=== PATIENT | female | born 1950 | race Caucasian/White ===

== ENCOUNTER 2023-06-18 17:15 | Inpatient (IN) | payer MEDICARE, OTHER, SELFPAY ==
[2023-06-18] VITALS (12 sets, daily range): BP systolic 111–129; BP diastolic 52–83
--- NOTE | 2023-06-18 16:11 | ED.GENMED ---
History of Present Illness
General
Chief Complaint: Fainting/Passed Out
Source: patient and records
Exam Limitations: none
Time Seen by Provider: 06/18/23 15:56
Nursing documentation reviewed up to this point in time: agreed with
Travel History
Have you had any contact with someone who has COVID-19?: No
Do you have any symptoms of coronavirus? Fever > 100 degrees, chills, cough, shortness of breath, sore throat, loss of taste or smell, muscle aches, or headache?: No
History of Present Illness
History of Present Illness:
73-year-old female presents the emergency department complaining of passing out about 8 times prior to arrival. She also states she passed out en route to coming here. She had an ablation [address] Posey.
Past History
Past History
ED Past Medical History: Arrthythmia (Atrial fib), HTN, Hypercholesterolemia, NIDDM and Other (OA, Osteoporosis, PNA, Sleep apnea)
ED Past Surgical History: Cholecystectomy and Other (Umbilical hernia,)
Social History
Tobacco: Former smoker
Alcohol: Occasional
Drug: None
Personal:
Living: with family
Review of Systems
Review of Systems
Allergies reviewed?: Yes
All Other Systems: Not applicable
Constitutional: Reports no symptoms
EENT: Reports no symptoms
Respiratory: Reports no symptoms
Cardiac: Reports syncope
ABD/GI: Reports no symptoms
: Reports no symptoms
Musculoskeletal: Reports no symptoms
Skin: Reports no symptoms
Neurological: Reports no symptoms
Endocrine: Reports no symptoms
Hematologic/Lymphatic: Reports no symptoms
Psychiatric: Reports no symptoms
Phy Exam
Physical Exam
Physical Exam:
Physical Exam
General: Afebrile
Neck: supple. no meningeal signs. normal posterior pharynx
Heart: s1/s2 regular rate and rhythm, no murmur. equal radial
pulses.
HEENT: Pupils equal round reactive to light, EOMI
Lungs: no acute respiratory distress. clear bilaterally
Abdomen: normal bowel sounds. not tender. no CVAT
Neuro: alert and oriented. no focal neurological deficits cranial nerves II through XII intact
Skin: no rash
Psychiatric: well kept. interactive and cooperative
Extremities: no edema. no calf tenderness. negative homans. good distal pulses
Course
Orders/Labs/Results
Orders:
Orders
06/18/23 15:21
Electrocardiogram (*1) Urgent
Reason for Study: Chest Pain
EKG- Treatment ONCE
06/18/23 16:02
EKG [Electrocardiogram (*1)] Urgent
Reason for Study: Abnormal EKG
06/18/23 16:03
EKG- Treatment ONCE
06/18/23 16:05
Complete Blood Count/With Diff Urgent
Comprehensive Metabolic Panel Urgent
Troponin I Urgent
06/18/23 16:10
PT/INR [Prothrombin Time] Urgent
06/18/23 16:50
Admit/Transfer Patient As Directed
Co-Sign Provider:
Level of Care: Inpatient admission
Assign to:: CVICU
Physician / Group: Dr. Posey
Diagnosis: pauses, syncope
Reason for Hospitalization: pauses, syncope
Expected length of stay greater than two midnights?: Yes
ELOS- Estimated Length of Stay in days: 3
I certify the patient meets the requirements for IP care: Yes
06/18/23 19:24
Acetaminophen [Tylenol] 500 mg PO Q4HPRN PRN
Calcium Carbonate [Oscal Wyatt 500] 500 mg PO QPM
Dextrose 50%-Water [Dextrose 50% Syringe] 12.5 grams IV [id number] PRN
Docusate Sodium [Colace] 100 mg PO DAILYPRN PRN
Glucagon [GlucaGen] 1 mg IM PRN PRN
06/18/23 19:24
Activity As Directed
Activity Level: Bedrest
Bedside Glucose Monitoring As Directed
Frequency: AC&HS
Comment: Change to q6h if pt on TPN, tube feeding or not eating
INT (Intravenous Needle Therapy) As Directed
Comment: #20 IV gauge catheter
Notify MD As Directed
Notify physician if: no consent on chart
OR/Surgery Prep As Directed
Type of Prep: cleanse patient with Chlorhexidine gluconate 2%
Surgical Procedure As Directed
Surgical Procedure: pacemaker
Vital Signs As Directed
Frequency: Per unit guidelines
Cpap [RESP] Routine
Patient to use own unit?: Yes
Instructions: QHS. If patient without her own CPAP, please use her typical settings.
06/18/23 20:00
Apixaban [Eliquis] 5 mg PO BID
06/18/23 22:00
Atorvastatin [Lipitor] 20 mg PO HS
Docusate Sodium [Colace] 100 mg PO HS
06/19/23 Breakfast
NPO
Allow oral meds: Yes
Allow clear liquids: No
NPO for procedure after (time): midnight
06/19/23 07:30
Insulin Aspart Corrective Low [Novolog Flexpen-Low Resistance] See Protocol SC AC
06/19/23 08:00
Aztreonam [Azactam] 2,000 mg IV PRE PROCEDURE ONE
Lisinopril [Zestril] 10 mg PO DAILY
Vancomycin [Vancocin] 1,000 mg 0.9% Sod Chloride 500 ml Irr [Nss Irrigation Bottle] 500 ml IRRIG CATH
Vancomycin [Vancocin] 1,500 mg 0.9% Sodium Chloride [Nss] 20 ml 0.9% Sodium Chloride 250 ml [Nss] 250 ml IV PRE PROCEDURE
Vancomycin Surgical Prophylaxis Indication: Allergy: PCN or B-Lactam
06/19/23 16:00
Pantoprazole [Protonix] 40 mg PO DAILY@1600
Abnormal Lab Results
06/18/23 06/18/23
16:05 16:10
RDW 15.6 H %
(11.5-14.5)
MPV 10.9 H fL
(7.4-10.4)
Absolute Lymphs (auto) 0.8 L 10^3/uL
(1.2-3.4)
Neutrophils % 78.5 H %
(42.2-75.2)
Lymphocytes % 16.3 L %
(20.5-51.1)
PT 17.1 H Sec
(11.4-14.6)
Potassium 3.4 L mmol/L
(3.5-5.1)
Chloride 108 H mmol/L
(98-107)
Creatinine 0.5 L mg/dL
(0.6-1.0)
Glucose 125 H mg/dl
(70-99)
Troponin I 0.231 H* ng/ml
06/18/23 16:05
06/18/23 16:05
Vital Signs
Initial and Last Documented VS:
Initial Vital Signs
Temp Pulse Resp BP Pulse Ox
98.2 F 82 18 129/75 100
06/18/23 15:18 06/18/23 15:18 06/18/23 15:18 06/18/23 15:18 06/18/23 15:18
Last Documented Vital Signs
Temp Pulse Resp BP Pulse Ox
98.3 F 76 20 117/52 97
06/18/23 22:45 06/18/23 23:00 06/18/23 23:00 06/18/23 23:00 06/18/23 23:10
MDM/Problems Addressed
Differential Diagnosis Includes:
Asystole, tachy bradycardia, sick sinus syndrome
MDM/Problems Addressed:
73-year-old female with sinus pauses, atrial fibrillation rapid, and episodic asystole. Patient had recent cardiac ablation. Discussed with Dr. Perales, who will see patient in ED. Plan to admit patient possible pacemaker.
Chronic conditions affecting care: Arrhythmia (Atrial fibrillation)
Acute Exacerbation and/or Progression of Chronic Illness: Arrhythmia (Atrial fibrillation)
*Pulse Oximetry
Patient hypoxic: no
*EKG
Interpreted by ED Provider?: Yes
EKG Intrepretation Date: 06/18/23
EKG Intrepretation Time: 15:27
Interpretation: abnormal
Comparison EKG: changes noted
Heart Rate: 122
Rate: tachycardiac
Rhythm: a-fib
[place]: normal axis
Interval: normal interval
QRS Pattern: normal QRS
Ischemia: non-specific ST changes
*Uniform Maker Interpretation
Rate: other (normal sinus, with sinus pause)
Interpretation: abnormal
Heart Rate: 78
Rhythm: sinus (intermittent sinus pause)
*Critical Care Note
Total Time (30-74mins, 75-104mins- exclusive of procedures): 30
comment:
Critical care statement: A total of 30 minutes of critical care time was provided for this patient. This includes management of unstable vital signs, evaluation of the patient at bedside, reviewing the patient's pertinent medical records, discussion
with consultants, review of old EKGs and review of pertinent medical records. This time with separate from time utilized to perform the aforementioned documented procedures insert [facility] critical care
Data Reviewed
Review of Other/Old Records Reveals: Records and Operative Reports (06/16/[address] Posey)
Patient Management
Social determinants of health affecting care: Living situation
Discussion with other providers: Camera Tuning Engineer (cardiology Dr. Perales)
Escalation/DeEscalation of care consider admission/obs:
admit indicated
ED Attending Note
-
Portions of this chart may have been created with voice recognition software.� Occasional wrong word or��sound alike� substitutions may have occurred due to the inherent limitations of voice recognition software.
Discharge Plan
Departure
Patient Disposition: TIRE CARE MANAGER
Date of Disposition: 06/18/23
Time of Disposition: 16:18
Admit to: IVU
Presentation/result/management discussed w/ accepting MD/DO: Dr. Perales, cardiology
Patient with high blood pressure during this ER visit?: Yes
Condition: Good
Discharge Problem:
Sinus pause, Syncope
Interventions
Interventions:
*Risk Screen - Suicide Last Done: 06/18/23 15:18
*General Assessment Last Done: 06/18/23 16:28
*Neglect/Abuse Screening Last Done: 06/18/23 15:18
ED- Fall Risk Assessment Last Done: 06/18/23 18:19
*ED COVID-19 Vaccine History Last Done: 06/18/23 15:18
*Nursing Disposition Last Done: 06/18/23 18:19
ED- Cardiac Assessment Last Done: 06/18/23 16:03
ED- Neurological Assessment Last Done: 06/18/23 16:03
Discharge Date and Time
Discharge Date/Time: 06/18/23 18:20
[2023-06-18 16:14] LABS: % Basophils 0.2 % (0-2); % Eosinophils 0.2 % (0-6); % Immature Granulocytes 0.4 % (0-0.5); % Lymphocytes 16.3 % (20.5-51.1); % Monocytes 4.4 % (1.7-9.3); % Neutrophils 78.5 % (42.2-75.2); Absolute Lymphocytes 0.8 10^3/uL (1.2-3.4); Absolute Monocytes 0.2 10^3/uL (0.1-0.6); Absolute Neutrophils 3.8 10^3/uL (1.4-6.5); Hematocrit 38.2 % (37.0-47.0); Hemoglobin 12.7 g/dL (12.0-16.0); Mean Corp Hgb Conc. 33.2 g/dL (33.0-37.0); Mean Corpuscular Hgb 28.6 pg (27.0-31.0); Mean Platelet Volume 10.9 fL (7.4-10.4); Nucleated Red Blood Cells % 0 %; Platelet Count 143 10^3/uL (130-400); Red Blood Cell Count 4.44 10^6/uL (4.20-5.40); Red Cell Dist. Width 15.6 % (11.5-14.5); White Blood Cell Count 4.8 10^3/uL (4.8-10.8)
[2023-06-18 16:27] LABS: INR 1.39; PT 17.1 Sec (11.4-14.6)
[2023-06-18 16:31] LABS: ALT (SGPT) 17 U/L (0-35); AST (SGOT) 20 U/L (14-36); Albumin 3.7 g/dl (3.5-5.0); Alkaline Phosphatase 65 U/L (38-126); Blood Urea Nitrogen 14 mg/dl (7-17); Calcium 8.5 mg/dl (8.4-10.2); Carbon Dioxide 26 mmol/L (22-30); Chloride 108 mmol/L (98-107); Glucose 125 mg/dl (70-99); Potassium 3.4 mmol/L (3.5-5.1); Sodium 136 mmol/L (135-145); Total Bilirubin 1.2 mg/dl (0.2-1.3); Total Protein 6.4 g/dl (6.3-8.2); eGFR > 60.00
[2023-06-18 16:37] LABS: Troponin I 0.231 ng/ml
--- NOTE | 2023-06-18 17:02 | HPS.HSE ---
Addendum entered and electronically signed by Cleveland Perales MD 06/18/23 17:28:
Patient seen and examined in collaboration with SALES FORCE DEVELOPER; agree with below.
-73-year-old female with medical history as outlined below; underwent atrial fibrillation ablation on 06/16/2023.
-Patient now admitted with symptomatic bradycardia (recurrent syncope).
-The patient continues to have several pauses up to 6 seconds in the ER; patient states that she has had over 20 episodes throughout the course of the day since noon.
-Case discussed with Interventional Cardiology and EP Cardiology; patient will undergo temporary pacemaker wire insertion now.
-Patient will undergo permanent pacemaker implantation tomorrow; NPO after midnight.
-Continue Eliquis as the patient just underwent atrial fibrillation relation 2 days ago.
-front desk monitor.
Original Note:
Family Physician
-
Family Physician: Paul Lo
Chief Complaint
-
'blacking out'
History of Present Illness
73 y/o female with hypertension, factor V Leiden, DM, TATYANA on CPAP and AFIB who is here for evaluation of multiple episodes of 'blacking out' for 5-6 seconds at a time. These are seen to correlate with pauses in the ER. She just had an AFIB ablation
with Dr. Posey on 06/16/23.
Medical History
Past Medical History
Past Medical History: Reports Arrhythmia, HTN, NIDDM and Other (as above)
Past Surgical History: Reports Cholecystectomy and Orthopedic
Social History
Tobacco: Former Smoker
Personal:
Family History
Family History: Not pertinent
Allergies / Home Medications
Allergies reflects when Allergies were last updated in [facility].
Home Medications with original date entered in [facility]
Allergy/Medication List:
Allergies: As listed by pharmacy
Medications: As listed by pharmacy
Review of Systems
-
History Source: Patient
A 12 point ROS was completed and negative except as noted: Yes
Cardiac: Reports Other ('blacking out')
Physical Exam
Vital Signs
Vital Signs
Temp Pulse Resp BP Pulse Ox
98.2 F 82 18 129/75 100
06/18/23 15:18 06/18/23 15:18 06/18/23 15:18 06/18/23 15:18 06/18/23 15:18
Physical Exam
General: Well Developed, Well Nourished and No Apparent Distress
HEENT: NormoCephalic and Anicteric
Respiratory: Clear and Non Labored Respirations
Cardiac: Regular Rhythm
Breast: Deferred by me
GI: Soft, Non Distended and Normal Bowel Sounds
Skin: Warm and Dry
Neuro: AO x 3
Psych: Calm
Laboratory Results
-
06/18/23 16:05
06/18/23 16:05
Laboratory Results
PT 17.1 Sec (11.4-14.6) H 06/18/23 16:10
INR 1.39 06/18/23 16:10
Total Bilirubin 1.2 mg/dl (0.2-1.3) 06/18/23 16:05
AST 20 U/L (14-36) 06/18/23 16:05
ALT 17 U/L (0-35) 06/18/23 16:05
Alkaline Phosphatase 65 U/L (38-126) 06/18/23 16:05
Troponin I 0.231 ng/ml H* 06/18/23 16:05
Data Reviewed
-
Medical Tests (Nuc Med, Echo, EKG etc): Report Reviewed by me (echo 04/17/23: Normal left ventricular size and systolic function. LV ejection fraction is 55-60% by Connelly's method of discs. Mild concentric left ventricular hypertrophy. No
significant valvular disease. Trivial to small pericardial effusion without hemodynamic compromise.) and Other (EKG SR)
Lab Data: Labs Reviewed by me
Impression/Plan
-
IMPRESSION/PLAN:
Pauses, syncope:
-this diagnosis is threat to life
-discussed with EP, interventional cardiology- temp wire today, permanent pacemaker tomorrow. Also discussed with laboratory animal care veterinarian charge.
-multiple 'black out' spells today per patient.
-hold metoprolol
PAF:
-in SR
-recent ablation 2 days ago as noted
-continue Eliquis for OAC
-hold metoprolol as above
-continue PPI s/p ablation
TATYANA:
-continue CPAP
DM 2:
-hold oral diabetic meds since NPO
-will order SSI for now
HTN:
-continue ACEI, hold BB, follow
Abnormal troponin:
-likely acute non-ischemic myocardial injury in setting of recent cardiac procedure
--- NOTE | 2023-06-18 19:03 | ITS.CL.PN ---
Dice Spotter - Procedure Note
Procedure
Procedure Note:
Temporary Pacemaker Insertion
Date: 06/18/2023
Referring: Cleveland Perales M.D.
Indication: Recent atrial fibrillation ablation, now with tachybradycardia syndrome and associated syncope.
Access:
7 [place] right internal jugular vein using a micropuncture kit under ultrasound guidance via a modified Seldinger technique.
Pacemaker Information:
Position: Right ventricular apex.
Current (mA): 20
Rate (bpm): 60 (backup)
Procedure:
The patient's right neck and inguinal areas were prepped and draped and standard sterile fashion. The right neck was anesthetized with 1% lidocaine. The internal jugular vein was punctured with a micropuncture needle under ultrasound guidance
using a modified Seldinger technique. Fluoroscopy confirmed satisfactory wire position. The needle was withdrawn and the micropuncture sheath was inserted. The inner dilator and micropuncture wire were withdrawn and a 0.035 J-wire was advanced.
The site was serially dilated and an 7 [place] Arrow sheath was inserted then sutured in place. A temporary pacemaker wire was covered with a sterile cover, then inserted through the 7 Kenyan sheath. The tip of the pacemaker was advanced into the
apex of the right ventricle. The pacemaker was turned on at 100 bpm at 20 mA. The current was serially decreased showing good capture at 1 mA. The current was increased to 20 mA and the rate decreased to VVI 60 bpm. The sterile cover was secured
and the sheath was covered with two opposing tegaderm dressings. A third tegaderm secured the body of the temporary pacemaker just below the right clavicle. The patient was transferred to CVICU in stable condition.
Radiation (mGy): 10.55
Dose Area Product (Gy*cm2): 1.6234
Fluoroscopy Time (minutes): 0.6
Conclusions:
1. Successful placement of a temporoary pacemaker via right internal jugular approach without acute complications.
2. Temporary pacemaker set to VVI backup at 60 bpm, 20 mA.
Recommendations:
1. Minimal manipulation of the right internal jugular wire to avoid potential dislodgement.
2. Tentative plan for permanent pacemaker placement tomorrow.
Copy to: Donis Posey M.D., Cleveland Perales M.D., Paul Lo M.D., Cleveland De La O M.D.
--- NOTE | 2023-06-18 19:30 | PTCARENOTE ---
Assumed care of patient from Pharmacist Aide RN s/p temp pacer wire placed via RIJ cordis. Patient oriented to room/unit, positioned in bed for comfort. SR on monitor, temp pacer set to VVI 60/20, VSS, lungs clear, SPO2 97% on RA. Abd soft, non tender,
+BS. palpable distal pulses, HENDRICKS equally without issue. Full assessment completed as documented, plan of care discussed with patient verbalizing understanding.
[2023-06-18] MEDS: OSCAL CAL 500 500 MG PO (20:57)
[2023-06-18] MEDS: PROTONIX 40 MG PO (20:57)
[2023-06-18] MEDS: TYLENOL 650 MG PO (20:58)
[2023-06-18] MEDS: NSS 500 IV (20:58)
[2023-06-18 21:39] LABS: Glucose - Point of Care 68 mg/dl (70-99)
[2023-06-18 21:56] LABS: Glucose - Point of Care 72 mg/dl (70-99)
--- NOTE | 2023-06-18 22:00 | GLUCOSE ---
SITUATION:
Patient unable to eat all day due to temp pacer being placed, initial accu check 68, patient asymptomatic, 4oz juice given per protocol, 15 min recheck 72.
BACKGROUND:
ASSESSMENT:
RECOMMENDATION:
[2023-06-18] MEDS: LIPITOR 20 MG PO (22:09)
[2023-06-18] MEDS: KCL 20 MEQ PO (22:09)
[2023-06-18] MEDS: COLACE PO ×2 (22:32→22:33)
--- NOTE | 2023-06-18 23:00 | PTCARENOTE ---
report received from previous RN, walking rounds done. pt flat in bed, sleeping. NSR on monitor, HR 70's. pt wearing CPAP mask. RIJ cordis with transvenous pacer intact, set to back up VVI 60, mA 20, KVO infusing. IV fluid noted within protective
sheath of pacer wire, CT PA Tsilina aware and no new orders. pure wick catheter in place. see worklist for full assessment, VS, and interventions.
--- NOTE | 2023-06-18 23:14 | PTCARENOTE ---
No acute changes in assessment, patient resting comfortably, VSS, remains SR on monitor, Temp pacer via right IJ cordis remains intact.
[2023-06-19] VITALS (23 sets, daily range): BP systolic 105–160; BP diastolic 43–91; PULSE 63–80; BMI 38.9
[2023-06-19 00:17] LABS: Glucose - Point of Care 86 mg/dl (70-99)
[2023-06-19 02:43] LABS: Glucose - Point of Care 81 mg/dl (70-99)
--- NOTE | 2023-06-19 03:00 | PTCARENOTE ---
pt VSS, no changes in assessment. AAOx4, pt denies any pain. SR w occasional V.pacing on monitor, HR 70's. transvenous pacer remains intact, settings unchanged. POX 95-97% on room air. AM labs drawn and sent.
[2023-06-19 03:14] LABS: Blood Urea Nitrogen 10 mg/dl (7-17); Calcium 8.3 mg/dl (8.4-10.2); Carbon Dioxide 24 mmol/L (22-30); Chloride 108 mmol/L (98-107); Estimated Creatinine Clearance 97 ml/min; Glucose 88 mg/dl (70-99); Potassium 3.2 mmol/L (3.5-5.1); Sodium 136 mmol/L (135-145); eGFR > 60.00
[2023-06-19 04:49] LABS: Hemoglobin 11.6 g/dL (12.0-16.0); Mean Corp Hgb Conc. 33.1 g/dL (33.0-37.0); Mean Corpuscular Hgb 28.4 pg (27.0-31.0); Mean Corpuscular Volume 85.6 fL (81.0-99.0); Mean Platelet Volume 10.7 fL (7.4-10.4); Platelet Count 114 10^3/uL (130-400); Red Blood Cell Count 4.09 10^6/uL (4.20-5.40); Red Cell Dist. Width 15.8 % (11.5-14.5); White Blood Cell Count 3.2 10^3/uL (4.8-10.8)
[2023-06-19] MEDS: KCL 40 MEQ PO (06:40)
--- NOTE | 2023-06-19 08:06 | PTCARENOTE ---
Gave small report to flue dust laborer RN, since patient is the next case. He was sitting next to Dr. Posey - said okay to administer Lisinopril and Eliquis this AM. JOURNAL CLERK notified since Eliquis order is on hold. Patient has some concerns about getting a
PPM, asked if Kalpesh could come and speak with her prior to the procedure.
--- NOTE | 2023-06-19 08:16 | PTCARENOTE ---
Patient received from nightshift nurse. Patient is alert and oriented x4, pleasant. Denies pain/discomfort - states that she is stiff from being in bed all night. NSR with occasional monomorphic PVCs. Audible heart tones. HR 70s-80s. BP 153/76.
Palpable pulses. Trace generalized edema. RIJ sheath maintained with KVO and temporary wire. Pacer box settings: VVI, HR 60, mA 20. Patient has not needed to be paced so far in this AM. RA. Oxygen saturation 96%. Upon auscultation, lung sounds clear
throughout. Abdomen round, obese. Hypoactive BS. NPO for procedure. Purewick removed. Voided in bedpan. Turns/repositions self. No wound management. Plan is to go to [facility] and received a PPM. Will continue to monitor.
[2023-06-19] MEDS: ZESTRIL 10 MG PO (08:28)
[2023-06-19] MEDS: ELIQUIS 5 MG PO ×2 (08:28→20:35)
[2023-06-19 09:12] LABS: Glucose - Point of Care 89 mg/dl (70-99)
[2023-06-19] MEDS: VANCOCIN 300 ML IV (09:35)
[2023-06-19] MEDS: VANCOCIN 300 MG IV (09:35)
--- NOTE | 2023-06-19 09:49 | PTCARENOTE ---
Gave full report to can labeler RN. Started vanco abx when they called for pre-op administration. Patient washed up with CHG wipes and new gown provided. Sheets changed. Azactam and sterile water taken out of CVICU Pyxis to travel with patient to cath
lab.
--- NOTE | 2023-06-19 09:58 | PTCARENOTE ---
Patient is very anxious about receiving PPM and whether he actually needs it. Dr. Posey came to speak with patient about her concerns. Consent signed. Patient picked up by dental laboratory manager RN and tech. Bedside updates given. Abx sent with patient.
--- NOTE | 2023-06-19 10:17 | W.PN.CD ---
Today's Communication / Plan
-
-Pacemaker implantation today
Impression / Plan
-
73 y/o female with hypertension, factor V Leiden, DM, TATYANA on CPAP and AFIB�s/p AF ablation 06/16/23, with recurrent presyncope/syncope over the last few months presented with sinus pause status post temporary pacemaker wire via right IJ and is now in
sinus rhythm.
Sick Sinus Syndrome
-History of recurrent syncope for the past few months
-Likely associated with conversion pauses
-On metoprolol at baseline sinus bradycardia yet long sinus pauses are likely not related to metoprolol
-S/p temporary wire
-Will plan for dual-chamber pacemaker today�likely need atrial pacing.
Paroxysmal atrial fibrillation
-S/p A-fib ablation on 06/16/2023
-Simple short pulm vein isolation -no complication
-No significant scar noted in the left atrium
Hypertension
-Well-controlled on hydrochlorothiazide, lisinopril, metoprolol, Jardiance
Chronic anticoagulation
-Factor V Leiden, paroxysmal atrial fibrillation
-[id number] score is 4, (age, gender, hypertension, diabetes)
-On Eliquis 5 mg twice a day
-Given recent ablation, we will not hold Eliquis and give Eliquis and pacemaker with full anticoagulation in place.
Physical Exam
Vital Signs/Labs
Vital Signs
Temp Pulse Resp BP Pulse Ox
98.0 F 78 17 160/73 98
06/19/23 04:00 06/19/23 10:00 06/19/23 10:00 06/19/23 09:00 06/19/23 10:00
06/18/23 06/19/23 06/20/23
06:59 06:59 06:59
Actual Weight 99.7 kg
06/19/23 04:34
06/19/23 02:41
PT 17.1 Sec (11.4-14.6) H 06/18/23 16:10
INR 1.39 06/18/23 16:10
LAB Results
06/18/23
16:05
Troponin I 0.231 H*
Physical Exam
Constitutional: No acute distress and Comfortable
EENT: Anicteric and Moist mucous membranes
Cardiovascular: Rhythm & rate is regular, Pedal edema is absent, JVD pressure is normal and Systolic murmur absent
Respiratory: Respiratory effort normal, Lungs clear to auscul. and Wheeze Absent
GI: Soft, Non tender and Normal bowel sounds
Neuro/Psych: Alert, Oriented and AO x 3
Other: Cardiac Device Site
Data Reviewed
-
Date of Service: June 19, 2023
Medical Decision Making: Reviewed Test Results, Independent Historian Assessment, Test Interpretation and Review of Case with other Provider
EKG: Tracing Personally Visualized and interpreted
Echo: Report Reviewed by me
Medical Tests (PFT, Pathology etc): Image Personally Visualized and interpreted
Labs: Labs Reviewed by me
Old Records: Reviewed
Critical Care Time (in minutes): 35
--- NOTE | 2023-06-19 11:37 | ITS.CL.PACE ---
Supervisor Prop Making - Pacemaker Implant
Pacemaker Implant
Procedure Report:
Dual Chamber Pacemaker Placement:
Ms. 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
Indications: Tachy Adeel syndrome
Date of the Procedure: 06/19/23
Pre-Operative Diagnosis: Tachy Adeel syndrome with symptomatic bradycardia
Post-Operative Diagnosis: Tachy Adeel syndrome with symptomatic bradycardia
Procedure Performed: DUAL CHAMBER PACEMAKER IMPLANTATION
Performing Physician:
Donis Posey MD
Anesthesia:
See anesthesia records
Pre-operative antibiotics:
Aztreonam/Vancomycin
Detailed Description of the Procedure:
The patient was identified using hospital identification and informed consent obtained for the procedure. The risks were explained including, but not limited to: Bleeding, infection, arrhythmia, stroke, vascular/cardiac/lung puncture, surgery,
pacemaker dependency/device malfunction. All questions were answered.
The patient was brought to the electrophysiology laboratory in stable condition in fasting state. Continuous electrocardiographic and hemodynamic monitoring was initiated. The initial rhythm was atrial fibrillation with rapid ventricular response. �
The procedure site was meticulously prepared with surgical scrub and allowed to dry with no pooling. Sterile draping was applied to cover the procedure site. The image intensifier was draped with sterile bag and positioned over the patient.
A surgical pause and time out was performed immediately prior to the procedure with review of her medical history, recent labs, allergies and medications with site of procedure identified and consent noted in the chart. Antibiotics pre operatively
given. All team members concurred.
The left infraclavicular region was prepped and draped in the usual sterile fashion. Local anesthesia was administered subcutaneously using 1% lidocaine / Bupivacaine.
The left upper extremity venogram was done and the axillary route identified. There was patent subclavian vein.
Following infiltration with local anesthetic, the axillary vein was accessed using the fluoroscopic guidance using the micro-puncture apparatus. The vascular sheaths were introduced for lead access. The leads were advanced into the right ventricle
and the right atrium.
The right ventricular lead was secured in position with an active fixation technique at the apical septal location.
The atrial lead was positioned at the right atrial appendage with active fixation.
There was excellent sensing, pacing, and impedance from the leads, with no diaphragmatic stimulation at 10 V output.�Bovie cautery, antibiotics, and fluoroscopy were used.
The sheaths were withdrawn, and the thresholds remained acceptable. The leads were secured in position at the venous entry site with 0-silk. A pocket was fashioned contiguous to the incision. The electrode terminals were connected to the pulse
generator, which was placed into the pocket.
The wound was irrigated thoroughly with antibiotic solution and closed in 3 layers using 2-0 Vloc then 4-0 V loc sutures to the dermis. STERIS trips were applied externally followed by Aquacel bandage. �
Procedure End:
The procedure was tolerated well.
Estimated Blood loss:
5 cc
Specimens Removed:
No cultures and no specimens were obtained. No intraoperative pathology was identified.
Urine output:
None
Packs / Drains/ Tubes:
None
Instrument / Sponge Count Correct:
Yes
Complications of the Procedure:
None
Condition of Patient at Time of Transfer:
Hemodynamically stable with no neurological or vascular compromise.
Device information:�
Generator: [employer]/St Eric; Model: Assurity- [id number]; Serial # [id number]�
Atrial Lead: [employer]/St Eric; Model: Tendril STS- 2088TC/46; Serial # [id number]�
Measured data in the right atrium was sensing of 3.8mV, impedance of 460 ohms and threshold of 1.2 V at 0.4ms�. �
RV Lead: [employer]/St Eric; Model: Tendril STS-2088TC/52; Serial # [id number]
Measured data in the RV lead was sensing of 5.8 mV, impedance of 590 ohms and threshold of 0.75 V at 0.4ms�
Adeel parameter settings were DDDR 80 bpm. �
����������� Mode Switch: On
����������� Paced AV interval: 180ms
����������� Sensed AV interval: 150 ms.
����������� Rate Adaptive A-V Interval: Off
Summary:
Successful implantation of MRI compatible dual St Eric chamber pacemaker
Results/Recommendations:
-Please follow up CXR�
-Please provide patient with adequate pain control�
Instructions to be given to patient:�
- Please follow up with [facility] at [address] [place] [address] ([phone]) to get your wound checked within 14 days of your discharge.
- Do not wet incision site until after it is evaluated at cardiology clinic. No soaking or bath until then. Showers or Sponge baths are OK.�Dab dry the area after a shower.
- Do not lift left elbow above shoulder, particularly with sudden jerking movements, for 1 month�
- Do not lift anything weighing more than 10 pounds with the left arm for 1 month�
- If you notice any fevers, shortness of breath, lightheadedness, chest pain, or worsening swelling in the wound site, please contact the arrhythmia clinic, contact your risk consultant, or present to the hospital for evaluation.�
Donis Posey MD
Electrophysiology
[2023-06-19] MEDS: AZACTAM 2000 MG IV (12:14)
[2023-06-19] MEDS: STERILE WATER FOR INJECTION 10 ML IV (12:15)
--- NOTE | 2023-06-19 12:18 | PTCARENOTE ---
Patient received from cath lab nurse. Checks performed with cath lab nurse RN. Patient is alert and oriented x1. She is c/o 8/10 L shoulder pain, where her new PPM is located. [place] Texted CP for pain medications. NSR/A-paced about 75%. HR 80s. BP 148/52. New
Dual chamber LCW PPM settings: DDDR HR 80-130. RA. Oxygen saturation 95%. Plan to obtain CXR so then patient can get OOB and each lunch. Will continue to monitor.
[2023-06-19 12:29] LABS: Glucose - Point of Care 100 mg/dl (70-99)
[2023-06-19] MEDS: LIDOCAINE 4% PATCH 1 PATCH TOPICAL (13:05)
[2023-06-19] MEDS: TYLENOL 650 MG PO (13:06)
--- NOTE | 2023-06-19 15:02 | PTCARENOTE ---
Patient went into rapid Afib with HR up to 181bpm at 1451. Patient states that she feels palpitations and fluttering. Denies dizziness, little lightheadedness. BP 114/43. Patient placed back into the bed. MARIELLA Malin notified and she stated she
will reach out to Dr. Posey. Cardiology aware and awaiting orders.
[2023-06-19] MEDS: PROTONIX 40 MG PO (15:34)
[2023-06-19] MEDS: TOPROL XL 100 MG PO ×2 (15:45→20:35)
--- NOTE | 2023-06-19 15:58 | W.PN.UPDATE ---
Update Note
Progress Note Update
Patient went into AF with RVR this afternoon. Metoprolol was given. If comes out of AF then continue Metoprolol 100 mg qhs and 50 mg QAM.
If remains in AF then plan for cardioversion in AM. Propafenone 600 mg X 1 for pharmacologic cardioversion. She has Rythmol at home for pill in the pocket to use.
--- NOTE | 2023-06-19 16:20 | CM ---
CM following for DC planning needs.
Met w/ patient at bedside to complete initial assessment.
Pt. informs that she resides in a private, 2 story home w/ spouse. Spouse has Parkinsons/Dementia and patient reports that she cares for him. Pt. has 2 sons that live closeby that can assist as needed.
Pt. is functionally indep. at baseline w/ ADLs, mobility without the use of any assisted device. Pt. does have a stair glide, which she uses due to 'bad knees'. Pt. has RX plan and uses [facility] [address] in [place].
Anticipated DC plan is for home without needs.
Will cont. to follow for any needs that may arise.
[2023-06-19] MEDS: LOPRESSOR 5 MG IV (17:01)
[2023-06-19] MEDS: ANCEF 5 IV (18:56)
[2023-06-19] MEDS: OSCAL CAL 500 500 MG PO (18:56)
--- NOTE | 2023-06-19 20:15 | PTCARENOTE ---
assumed care of pt from previous RN. pt A&Ox4, resting in bed. no c/o pain at this time. a fib on tele-monitor, HR 115s-130s. PPM DDDR w/ parameters 80-130. POX 96% on RA. abd s/n, round, +BS. pt voiding in bathroom. PIV intact. L arm immobilizer in
place. see worklist for complete nursing assessment, interventions, VS, and I&Os.
[2023-06-19] MEDS: COLACE 100 MG PO (20:34)
[2023-06-19] MEDS: AMARYL 4 MG PO (20:34)
[2023-06-19] MEDS: LIPITOR 20 MG PO (20:35)
[2023-06-19 21:09] LABS: Glucose - Point of Care 182 mg/dl (70-99)
--- NOTE | 2023-06-20 | PTCARENOTE ---
assessment remains unchanged. 100% a-paced on tele-monitor. POX 96% w/ CPAP. no c/o pain at this time.
[2023-06-20 00:24] VITALS: BP 116/56
[2023-06-20] MEDS: ANCEF 5 IV (02:29)
[2023-06-20] MEDS: XANAX 0.25 MG PO (02:29)
[2023-06-20 03:56] VITALS: PULSE 80
--- NOTE | 2023-06-20 04:00 | PTCARENOTE ---
assessment remains unchanged. remains 100% a-paced. unable to obtain AM labs. phlebotomy team called.
[2023-06-20] MEDS: NSS IV (04:04)
[2023-06-20 04:28] VITALS: BP 123/60
[2023-06-20 06:36] LABS: Hematocrit 37.1 % (37.0-47.0); Hemoglobin 12.2 g/dL (12.0-16.0); Mean Corp Hgb Conc. 32.9 g/dL (33.0-37.0); Mean Corpuscular Hgb 28.5 pg (27.0-31.0); Mean Corpuscular Volume 86.7 fL (81.0-99.0); Mean Platelet Volume 10.5 fL (7.4-10.4); Platelet Count 126 10^3/uL (130-400); Red Blood Cell Count 4.28 10^6/uL (4.20-5.40); Red Cell Dist. Width 15.5 % (11.5-14.5); White Blood Cell Count 4.3 10^3/uL (4.8-10.8)
[2023-06-20 07:08] LABS: Blood Urea Nitrogen 18 mg/dl (7-17); Calcium 8.6 mg/dl (8.4-10.2); Carbon Dioxide 22 mmol/L (22-30); Chloride 104 mmol/L (98-107); Estimated Creatinine Clearance 97 ml/min; Glucose 95 mg/dl (70-99); Magnesium 2.1 mg/dl (1.6-2.3); Potassium 3.7 mmol/L (3.5-5.1); Sodium 137 mmol/L (135-145); eGFR > 60.00
--- NOTE | 2023-06-20 08:13 | PN.CDI ---
CDI
- -
CDI:
Physician Documentation Request
Admit Date: 06/18/23 17:15
Dear Doctor Kalpesh,
Patient admitted with symptomatic bradycardia.
06/18 Potassium level: 3.4
06/18 Potassium chloride 20 meq PO administered
06/19 Potassium level: 3.2
06/19 Potassium chloride 40 meq administered
Based on the above, could you clarify in the progress notes, the appropriate diagnosis, if significant, that supports the above abnormalities and additional evaluation, monitoring and/or treatment rendered:
Hypokalemia
Abnormal lab value insignificant
Other
Use of terms such as suspected, likely, concern for, or probable (associated with a specific diagnosis that is being evaluated, monitored, or treated as if it exists) are acceptable and can be coded in the inpatient setting, when documented at the
time of discharge.
Thank you,
Marlene Yadav RN, BSN
CDI Specialist
Available via [place] text
Please use your independent medical judgment in providing your response.
--- NOTE | 2023-06-20 08:26 | W.PN.CD ---
Addendum entered and electronically signed by MARIELLA Montenegro 06/24/23 07:52:
On admission pt had hypokalemia and was repleted by lorenza K on d/c 3.7.
Original Note:
Today's Communication / Plan
-
doing well s/p PPM
cont Toprol XL 50mg AM, 100mg PM; and eliquis 5mg bid
Impression / Plan
-
73 y/o female with hypertension, factor V Leiden, DM, TATYANA on CPAP and AFIB�s/p AF ablation 06/16/23, with recurrent presyncope/syncope over the last few months presented with sinus pause status post temporary pacemaker wire via right IJ and is now in
sinus rhythm.
Sick Sinus Syndrome
-History of recurrent syncope for the past few months
-Likely associated with conversion pauses
-s/p St Eric dual chamber PPM 06/19
Paroxysmal atrial fibrillation
-S/p A-fib ablation on 06/16/2023
-Simple short pulm vein isolation -no complication
-No significant scar noted in the left atrium
-some paroxysms yesterday: now back in sinus
-cont Toprol XL and eliquis 5mg bid
Hypertension
-Well-controlled on hydrochlorothiazide, lisinopril, metoprolol
Chronic anticoagulation
-Factor V Leiden, paroxysmal atrial fibrillation
-[id number] score is 4, (age, gender, hypertension, diabetes)
-On Eliquis 5 mg twice a day
Physical Exam
Vital Signs/Labs
Vital Signs
Temp Pulse Resp BP Pulse Ox
98.0 F 80 20 123/60 98
06/20/23 04:00 06/20/23 06:30 06/20/23 04:00 06/20/23 04:28 06/20/23 04:00
06/19/23 06/20/23 06/21/23
06:59 06:59 06:59
Actual Weight 99.7 kg
06/20/23 06:05
06/20/23 06:05
PT 17.1 Sec (11.4-14.6) H 06/18/23 16:10
INR 1.39 06/18/23 16:10
Magnesium 2.1 mg/dl (1.6-2.3) 06/20/23 06:05
LAB Results
06/18/23
16:05
Troponin I 0.231 H*
Physical Exam
Constitutional: No acute distress and Comfortable
EENT: Moist mucous membranes
Cardiovascular: Rhythm & rate is regular, Pedal edema is absent, JVD pressure is normal and Systolic murmur absent
Respiratory: Respiratory effort normal, Lungs clear to auscul. and Wheeze Absent
GI: Soft, Distention absent and Flat
Neuro/Psych: AO x 3
Data Reviewed
-
Date of Service: June 20, 2023
EKG: Other (Tele: paroxysmal A fib, now A paced)
[2023-06-20 09:35] VITALS: BP 129/69
[2023-06-20] MEDS: JARDIANCE 25 MG PO (09:40)
[2023-06-20] MEDS: TOPROL XL 50 MG PO (09:40)
[2023-06-20] MEDS: ELIQUIS 5 MG PO (09:40)
[2023-06-20] MEDS: AMARYL 4 MG PO (09:41)
[2023-06-20] MEDS: ZESTRIL 10 MG PO (09:41)
--- NOTE | 2023-06-20 10:19 | PTCARENOTE ---
assumed care of pt from previous shift RN, paced rhythm on tele, VSS, pressure dressing and sling removed from left CW and arm by cardiology. Plan of care reviewed w the pt and questions encouraged.
--- NOTE | 2023-06-20 10:47 | CM ---
CM following for DC planning needs.
Pt. for DC to home today.
Met w/ patient at bedside. She feels prepared for DC.
There are no needs at time of DC.
Plan: HOME, no needs.
--- NOTE | 2023-06-20 11:10 | W.DS.TRANS ---
DC Summary - Manager Private
-
Discharge Instructions:
Discharge Diagnosis/Procedures SSS post Pacemaker insertion
Diet Low Cholesterol,Diabetic, Carb Controlled
Driving Restrictions No driving for 1 week
Bathing Restrictions OK to Shower
Instructions:
Stand-Alone Forms: DC Inst - Implanted Device
Changes to Home Medications: No
Discharge Medications:
DC Medications w/original date entered in [employer]
acetaminophen 500 mg tablet (Tylenol Extra Strength) 500 mg PO Q4HPRN PRN pain 08/03/15
empagliflozin 25 mg tablet (Jardiance) 25 mg PO DAILY Diabetes 08/03/15
apixaban 5 mg tablet (Eliquis) 5 mg PO BID Blood Clot Prevention/Tx 08/26/20
metoprolol succinate 100 mg tablet,extended release 24 hr 100 mg PO HS Heart Disease/Condition 08/26/20
calcium 200 mg-vitamin D3 1.25 mcg-magnesium 50 mg capsule 1 cap PO QPM Supplement 05/29/23
docusate sodium 100 mg capsule (Colace) 100 mg PO HS Constipation 05/29/23
dulaglutide 4.5 mg/0.5 mL subcutaneous pen injector (Trulicity) 4.5 mg SC WE Diabetes 05/29/23
lisinopril 10 mg tablet 10 mg PO DAILY Blood Pressure 05/29/23
atorvastatin 20 mg tablet 20 mg PO HS High Cholesterol 06/11/23
denosumab 60 mg/mL subcutaneous syringe (Prolia) 60 mg SC [id number] OSTEOPOROSIS 06/11/23
calcium carbonate 500 mg calcium (1,250 mg) tablet 500 mg PO QPM Supplement 06/18/23
docusate sodium 100 mg capsule 100 mg PO DAILY PRN constipation 06/18/23
glimepiride 4 mg tablet 4 mg PO BID Diabetes 06/18/23
hydrochlorothiazide 25 mg tablet 25 mg PO ONCE PRN high blood pressure 06/18/23
ketoconazole 2 % topical cream 1 applic topical .SEE BELOW Skin Issues 06/18/23
metoprolol succinate 100 mg tablet,extended release 24 hr 50 mg PO DAILY Heart Disease/Condition 06/18/23
pantoprazole 40 mg tablet,delayed release (Protonix) 40 mg PO DAILY@1600 Gastrointestinal Issue 06/18/23
Home Medication Changes
Pending Results: No
[2023-06-20] MEDS: COLACE 100 MG PO (12:33)
[2023-06-20] MEDS: LIDOCAINE 4% PATCH TOPICAL (12:46)
--- NOTE | 2023-06-20 13:41 | PTCARENOTE ---
IV lines and tele monitor d/c'ed. Discharge instructions, follow up appointments and medication list reviewed w the pt and questions encouraged.
== END 2023-06-20 15:05 | disposition home or self-care (01) | DRG 243 ==
LOC: CVICU 17:15
PROVIDERS: Emergency Medicine; Internal Medicine; Internal Medicine Cardiovascular Disease; Nurse Practitioner; Nurse Practitioner Adult Health; ADMITTING PHYSICIAN Internal Medicine Cardiovascular Disease; EMERGENCY PHYSICIAN Emergency Medicine; FAMILY PHYSICIAN Internal Medicine Geriatric Medicine
PROC: 5A09357 Assistance with Respiratory Ventilation, Less than 24 Consecutive Hours, Continuous Positive Airway Pressure (ICD-10-PCS; 2023-06-18)
PROC: 5A1223Z Performance of Cardiac Pacing, Continuous (ICD-10-PCS; 2023-06-18)
PROC: 0JH606Z Insertion of Pacemaker, Dual Chamber into Chest Subcutaneous Tissue and Fascia, Open Approach (ICD-10-PCS; 2023-06-19)
PROC: 02H63JZ Insertion of Pacemaker Lead into Right Atrium, Percutaneous Approach (ICD-10-PCS; 2023-06-19)
PROC: 02HK3JZ Insertion of Pacemaker Lead into Right Ventricle, Percutaneous Approach (ICD-10-PCS; 2023-06-19)
DX: I49.5 Sick sinus syndrome (principal); D68.51 Activated protein C resistance; I5A Non-ischemic myocardial injury (non-traumatic); I48.0 Paroxysmal atrial fibrillation; E78.00 Pure hypercholesterolemia, unspecified; I10 Essential (primary) hypertension; E87.6 Hypokalemia; E11.9 Type 2 diabetes mellitus without complications; G47.33 Obstructive sleep apnea (adult) (pediatric); M81.0 Age-related osteoporosis without current pathological fracture; I49.1 Atrial premature depolarization; Z90.49 Acquired absence of other specified parts of digestive tract; Z87.891 Personal history of nicotine dependence; Z79.01 Long term (current) use of anticoagulants
CPT/HCPCS: 33208; 33210; 71045; 76937; 80048; 80053; 82962; 83735; 84484; 85025; 85027; 85347; 85610; 86900; 86901; 93005; 93656; 94660; 99291; C1732; C1759; C1766; C1769; C1785; C1892; C1894; C1898; Q9967

== ENCOUNTER → 2023-10-31 13:35 | Outpatient (REF) | payer MEDICARE, OTHER, SELFPAY | LOC: MRI 13:35 | PROVIDERS: ATTENDING PHYSICIAN Physician Assistant Medical; FAMILY PHYSICIAN Internal Medicine Geriatric Medicine | DX: M25.512 Pain in left shoulder (principal) | CPT/HCPCS: 73221 ==

== ENCOUNTER → 2025-04-25 14:55 | Outpatient (REF) | payer MEDICARE, OTHER, SELFPAY | LOC: RAD 14:55 | PROVIDERS: ATTENDING PHYSICIAN Internal Medicine Geriatric Medicine | DX: I10 Essential (primary) hypertension (principal); E78.5 Hyperlipidemia, unspecified; I48.0 Paroxysmal atrial fibrillation; R25.2 Cramp and spasm; E55.9 Vitamin D deficiency, unspecified; E66.01 Morbid (severe) obesity due to excess calories; D35.2 Benign neoplasm of pituitary gland; E11.9 Type 2 diabetes mellitus without complications; E66.9 Obesity, unspecified; G47.33 Obstructive sleep apnea (adult) (pediatric); J40 Bronchitis, not specified as acute or chronic; Z13.89 Encounter for screening for other disorder; R19.00 Intra-abdominal and pelvic swelling, mass and lump, unspecified site | CPT/HCPCS: 93925 ==